=== PATIENT | male | born 1985 | race Caucasian/White ===

== ENCOUNTER 2021-01-14 13:55 | Inpatient (IN) | payer OTHER ==
[2021-01-14] MEDS ORDERED: Sodium Chloride 0.9% 10 ML Syringe FLUSH PRN (14:34)
--- NOTE | 2021-01-14 16:36 | EDM.PDOC ---
ED HPI GENERAL MEDICAL PROBLEM - General Chief Complaint: Respiratory Problem Stated Complaint: COVID +/COUGH Time Seen by Provider: 01/14/21 14:20 Source of Information: Reports: Patient History Limitations: Reports: No Limitations - History of Present Illness INITIAL COMMENTS - FREE TEXT/NARRATIVE: 35-year-old male presents the emergency department today with complaints of in creased shortness of breath due to Covid. Patient states that he developed symptoms of Covid approximately 2 weeks ago. States he tested positive for Covid on 01/09/2021. Patient states he has completed his 10 days of isolation. Complains of progressively worsening dyspnea at rest. States that he has had chest discomfort associated with persistent paroxysmal coughing. States he has been taking Mucinex, DayQuil and NyQuil. He does admit to vaping. States he is otherwise healthy and does not have any medical problems. O2 saturations while in triage were 87% on room air. O2 was applied at 4 L per nasal cannula and O2 saturations only increased to 91% on room air. States that most of his symptoms have resolved. He initially did have nausea, fever, chills, body aches and diarrhea. States that he continues to have diarrhea and decreased appetite. Chest Pain Score (Numeric/FACES): 5 - Related Data Allergies Allergy/AdvReac Type Severity Reaction Status Date / Time No Known Allergies Allergy Verified 01/14/21 14:09 Home Meds: Home Meds . [No Known Home Meds] 01/14/21 [History] Past Medical History - Past Health History Medical/Surgical History: Denies Medical/Surgical History - Infectious Disease History Infectious Disease History: Reports: Novel Coronavirus Social & Family History - Tobacco Use Tobacco Use Status *Q: Never Tobacco User - Recreational Drug Use Recreational Drug Use: No ED ROS GENERAL - Review of Systems Review Of Systems: Comprehensive ROS is negative, except as noted in HPI. ED EXAM, GENERAL - Physical Exam Exam: See Below Exam Limited By: No Limitations General Appearance: Alert, WD/WN, Mild Distress Ears: Normal External Exam, Hearing Grossly Normal Nose: Normal Inspection Throat/Mouth: Normal Inspection, Normal Lips, Normal Voice, No Airway Compromise Head: Atraumatic Neck: Normal Inspection, Supple Respiratory/Chest: No Accessory Muscle Use, Chest Non-Tender, Respiratory Distress, Decreased Breath Sounds, Crackles (Bilaterally) Cardiovascular: Normal Peripheral Pulses, Regular Rate, Rhythm, No Edema, No Murmur Peripheral Pulses: 2+: Radial (L), Radial (R) GI/Abdominal: Normal Bowel Sounds, Soft, Non-Tender, No Distention (Male) Exam: Deferred Rectal (Males) Exam: Deferred Back Exam: Normal Inspection Extremities: Normal Inspection Neurological: Alert, Oriented, Normal Cognition Psychiatric: Normal Affect, Normal Mood Skin Exam: Warm, Dry, Intact, Normal Color, No Rash Lymphatic: No Adenopathy Course - Vital Signs Text/Narrative:: As stated above, patient presents with worsening shortness of breath associated with Covid. Patient is currently on 4 L of oxygen per nasal cannula with O2 saturations at 91%. He does have a paroxysmal cough noted. Lung sounds with crackles noted to all layton. I have ordered lab studies to include a CBC, CMP, magnesium, C-reactive protein and D-dimer. We will also obtain a portable chest x-ray. Last Recorded V/S: Last Vital Signs Temp 97.0 F 01/14/21 14:04 Pulse 88 01/14/21 14:04 Resp 23 H 01/14/21 14:04 BP 118/76 01/14/21 14:04 Pulse Ox 87 L 01/14/21 14:04 - Orders/Labs/Meds Orders: Active Orders 24 hr Category Date Time Status Chest 1V Frontal [CR] Stat Exams 01/14/21 14:34 Taken CORONAVIRUS COVID-19 EMI [MOLEC] Stat Lab 01/14/21 16:25 Received Sodium Chloride 0.9% [Saline Flush] Med 01/14/21 14:34 Active 10 ml FLUSH ASDIRECTED PRN cefTRIAXone [Rocephin] 2 gm Med 01/14/21 16:30 Active Sodium Chloride 0.9% [Normal Saline AdvBag] 100 ml IV Q24H Saline Lock Insert [OM.PC] Stat Oth 01/14/21 14:34 Ordered Medication Orders Ceftriaxone Sodium 2 gm/ (Sodium Chloride) 100 mls @ 200 mls/hr IV Q24H MADYSON Sodium Chloride (Sodium Chloride 0.9% 10 Ml Syringe) 10 ml FLUSH ASDIRECTED PRN PRN Reason: Keep Vein Open Last Admin: 01/14/21 15:14 Dose: 10 ml Documented by: JULIO Labs: Laboratory Tests 01/14/21 01/14/21 01/14/21 Range/Units 15:00 15:00 15:00 WBC 6.08 (4.23-9.07) K/mm3 RBC 4.93 (4.63-6.08) M/mm3 Hgb 14.2 (13.7-17.5) gm/dl Hct 43.0 (40.1-51.0) % MCV 87.2 (79.0-92.2) fl MCH 28.8 (25.7-32.2) pg MCHC 33.0 (32.2-35.5) g/dl RDW Std Deviation 43.2 (35.1-43.9) fL Plt Count 279 (163-337) K/mm3 MPV 10.9 (9.4-12.3) fl Neut % (Auto) 53.9 (34.0-67.9) % Lymph % (Auto) 29.8 (21.8-53.1) % [place] % (Auto) 15.0 H (5.3-12.2) % Eos % (Auto) 0.5 L (0.8-7.0) Baso % (Auto) 0.5 (0.1-1.2) % Neut # (Auto) 3.28 (1.78-5.38) K/mm3 Lymph # (Auto) 1.81 (1.32-3.57) K/mm3 [place] # (Auto) 0.91 H (0.30-0.82) K/mm3 Eos # (Auto) 0.03 L (0.04-0.54) K/mm3 Baso # (Auto) 0.03 (0.01-0.08) K/mm3 Manual Slide Review Normal smear D-Dimer, Quantitative 1.08 H (0.19-0.50) mg/L Sodium 142 (136-145) mEq/L Potassium 4.6 (3.5-5.1) mEq/L Chloride 107 (98-107) mEq/L Carbon Dioxide 25 (21-32) mEq/L Anion Gap 14.6 (5-15) BUN 12 (7-18) mg/dL Creatinine 0.8 (0.7-1.3) mg/dL Est Cr Clr Drug Dosing 133.07 mL/min Estimated GFR (MDRD) > 60 (>60) mL/min BUN/Creatinine Ratio 15.0 (14-18) Glucose 94 (70-99) mg/dL Calcium 7.9 L (8.5-10.1) mg/dL Magnesium 2.1 (1.8-2.4) mg/dL Total Bilirubin 0.6 (0.2-1.0) mg/dL AST 152 H (15-37) U/L ALT 193 H (16-63) U/L Alkaline Phosphatase 75 (46-116) U/L C-Reactive Protein 11.0 H* (<1.0) mg/dL Total Protein 6.7 (6.4-8.2) g/dl Albumin 3.2 L (3.4-5.0) g/dl Globulin 3.5 gm/dL Albumin/Globulin Ratio 0.9 L (1-2) Meds: Medications Generic Name Dose Route Start Last Admin Trade Name Freq PRN Reason Stop Dose Admin Ceftriaxone Sodium 2 gm/ 100 mls @ 200 mls/hr 01/14/21 16:30 Sodium Chloride IV Q24H MADYSON Sodium Chloride 10 ml 01/14/21 14:34 01/14/21 15:14 Sodium Chloride 0.9% 10 Ml Syringe FLUSH 10 ml ASDIRECTED PRN Administration Keep Vein Open - Re-Assessments/Exams Free Text/Narrative Re-Assessment/Exam: 01/14/21 16:37 Portable x-ray of the chest was reviewed by myself and it reveals multiple areas of infiltrate consistent with Covid pneumonia. 01/14/21 16:42 Hematology reveals a WBC of 6.08, hemoglobin 14.2, hematocrit 43.0, platelet count 279, coagulation reveals a D-dimer of 1.08 Chemistry reveals a sodium of 142, potassium 4.6, carbon dioxide 25, anion gap 14.6, BUN 12, creatinine 0.8, GFR greater than 60, calcium 7.9, magnesium 2.1, AST 152, ALT 193, C-reactive protein 11.0 I do feel this patient needs to be admitted to the hospital due to his increasing dyspnea and oxygen requirements. I have spoken with Dr. Weeks, the hospitalist, who has accepted to admit the patient and his services. He requests that I order the patient receive Rocephin 2 g IV as well as be retested for Covid. Departure - Departure Time of Disposition: 16:43 Disposition: Admitted As Inpatient 66 Condition: Good Clinical Impression: Pneumonia due to 2019 novel coronavirus - Discharge Information Referrals: PCP,None [Primary Care Provider] - Sepsis Event Note (ED) - Evaluation Sepsis Screening Result: No Definite Risk - Focused Exam Vital Signs: Vital Signs Temp Pulse Resp BP Pulse Ox 01/14/21 14:04 97.0 F 88 23 H 118/76 87 L - My Orders Last 24 Hours: My Active Orders 01/14/21 14:34 Chest 1V Frontal [CR] Stat Sodium Chloride 0.9% [Saline Flush] 10 ml FLUSH ASDIRECTED PRN Saline Lock Insert [OM.PC] Stat 01/14/21 16:25 CORONAVIRUS COVID-19 EMI [MOLEC] Stat 01/14/21 16:30 cefTRIAXone [Rocephin] 2 gm Sodium Chloride 0.9% [Normal Saline AdvBag] 100 ml IV Q24H - Assessment/Plan Last 24 Hours: My Active Orders 01/14/21 14:34 Chest 1V Frontal [CR] Stat Sodium Chloride 0.9% [Saline Flush] 10 ml FLUSH ASDIRECTED PRN Saline Lock Insert [OM.PC] Stat 01/14/21 16:25 CORONAVIRUS COVID-19 EMI [MOLEC] Stat 01/14/21 16:30 cefTRIAXone [Rocephin] 2 gm Sodium Chloride 0.9% [Normal Saline AdvBag] 100 ml IV Q24H
[2021-01-14] MEDS ORDERED: Morphine 2 MG/ML SYRINGE IVPUSH PRN (17:18)
[2021-01-14] MEDS ORDERED: oxyCODONE 5 MG Tab PO PRN (17:18)
[2021-01-14] MEDS ORDERED: Temazepam 15 MG Cap PO PRN (17:18)
[2021-01-14] MEDS ORDERED: Ondansetron 4 MG Tab.DIS PO PRN (17:18)
[2021-01-14] MEDS ORDERED: Acetaminophen 325 MG Tab PO PRN (17:18)
[2021-01-14] MEDS ORDERED: Docusate Sodium 100 MG Cap PO PRN (17:18)
--- NOTE | 2021-01-14 17:22 | PCM.HP.2 ---
H&P History of Present Illness - General Date of Service: 01/15/21 Admit Problem/Dx: Admission Diagnosis/Problem Admission Diagnosis/Problem Pneumonia Source of Information: Patient History Limitations: Reports: No Limitations - History of Present Illness Initial Comments - Free Text/Narative: The patient is a 35-year-old gentleman who had presented to the emergency department on January 14, 2021 with a complaint of shortness of breath. The patient had been diagnosed with COVID 19 on January 09, 2021 by testing. The patient says that his symptoms started approximately 2 weeks ago. He has been trying to treat at home without success. The patient also says that he has paroxysmal coughing and not able to take a deep breath. The patient had completed 10 days of isolation at home. The patient says that he had a headache initially but this has resolved. He is denied any nausea or vomiting. The patient also reports that he had some fever. Decreased appetite. The patient has no other medical history and is not taking any medications. The patient has been vaping tobacco. Onset of Symptoms: Reports: Gradual Duration of Symptoms: Reports: Week(s):, Getting Worse Location: Reports: Chest, Generalized Quality: Reports: Dull Improves with: Reports: Rest Worsens with: Reports: Breathing Context: Reports: Sick Contact Associated Symptoms: Reports: Cough, Headaches Chest Pain Score (Numeric/FACES): 5 - Related Data Allergies/Adverse Reactions: Allergies Allergy/AdvReac Type Severity Reaction Status Date / Time No Known Allergies Allergy Verified 01/14/21 21:08 Home Medications: Home Meds . [No Known Home Meds] 01/14/21 [History] Past Medical History - Past Health History Medical/Surgical History: Denies Medical/Surgical History HEENT History: Reports: None Cardiovascular History: Reports: None Respiratory History: Reports: None Gastrointestinal History: Reports: None Genitourinary History: Reports: None Musculoskeletal History: Reports: None Neurological History: Reports: None Psychiatric History: Reports: None Endocrine/Metabolic History: Reports: None Hematologic History: Reports: None Immunologic History: Reports: None Dermatologic History: Reports: None - Infectious Disease History Infectious Disease History: Reports: Novel Coronavirus Social & Family History - Tobacco Use Tobacco Use Within Last Twelve Months: Vaping - Recreational Drug Use Recreational Drug Use: No - Living Situation & Occupation Living situation: Reports: , with Family Occupation: Employed H&P Review of Systems - Review of Systems: Review Of Systems: See Below General: Reports: Weakness, Fatigue, Decreased Appetite HEENT: Reports: No Symptoms Pulmonary: Reports: Shortness of Breath, Wheezing, Pleuritic Chest Pain, Cough. Denies: Sputum Cardiovascular: Reports: No Symptoms Gastrointestinal: Reports: No Symptoms Genitourinary: Reports: No Symptoms Musculoskeletal: Reports: No Symptoms Skin: Reports: No Symptoms Psychiatric: Reports: No Symptoms Neurological: Reports: No Symptoms Hematologic/Lymphatic: Reports: No Symptoms Immunologic: Reports: No Symptoms Exam - Exam Exam: See Below - Vital Signs Vital Signs: Last Vital Signs Temp 36.1 C 01/14/21 14:04 Pulse 88 01/14/21 14:04 Resp 23 H 01/14/21 14:04 BP 118/76 01/14/21 14:04 Pulse Ox 87 L 01/14/21 14:04 Weight: 112.627 kg - Exam Quality Assessment: Supplemental Oxygen. No: DVT Prophylaxis General: Alert, Oriented, Cooperative, Mild Distress HEENT: Conjunctiva Clear, EACs Clear, EOMI, Hearing Intact, Mucosa Moist & [place], PERRLA Neck: Supple, Trachea Midline Lungs: Decreased Breath Sounds, Crackles (Scattered throughout the lung layton) Cardiovascular: Regular Rate, Regular Rhythm GI/Abdominal Exam: Normal Bowel Sounds, Soft, No Distention (Male) Exam: Deferred Rectal (Males) Exam: Deferred Back Exam: Normal Inspection, Full Range of Motion Extremities: Normal Inspection, Normal Range of Motion, No Pedal Edema Skin: Warm, Dry, Intact Neurological: Cranial Nerves Intact, Strength Equal Bilateral, Normal Gait, Normal Speech Neuro Extensive - Mental Status: Alert, Oriented x3 Psychiatric: Alert, Normal Affect, Normal Mood - Patient Data Lab Results Last 24 hrs: Laboratory Results - last 24 hr 01/14/21 01/14/21 01/14/21 Range/Units 15:00 15:00 15:00 WBC 6.08 (4.23-9.07) K/mm3 RBC 4.93 (4.63-6.08) M/mm3 Hgb 14.2 (13.7-17.5) gm/dl Hct 43.0 (40.1-51.0) % MCV 87.2 (79.0-92.2) fl MCH 28.8 (25.7-32.2) pg MCHC 33.0 (32.2-35.5) g/dl RDW Std Deviation 43.2 (35.1-43.9) fL Plt Count 279 (163-337) K/mm3 MPV 10.9 (9.4-12.3) fl Neut % (Auto) 53.9 (34.0-67.9) % Lymph % (Auto) 29.8 (21.8-53.1) % [place] % (Auto) 15.0 H (5.3-12.2) % Eos % (Auto) 0.5 L (0.8-7.0) Baso % (Auto) 0.5 (0.1-1.2) % Neut # (Auto) 3.28 (1.78-5.38) K/mm3 Lymph # (Auto) 1.81 (1.32-3.57) K/mm3 [place] # (Auto) 0.91 H (0.30-0.82) K/mm3 Eos # (Auto) 0.03 L (0.04-0.54) K/mm3 Baso # (Auto) 0.03 (0.01-0.08) K/mm3 Manual Slide Review Normal smear D-Dimer, Quantitative 1.08 H (0.19-0.50) mg/L Sodium 142 (136-145) mEq/L Potassium 4.6 (3.5-5.1) mEq/L Chloride 107 (98-107) mEq/L Carbon Dioxide 25 (21-32) mEq/L Anion Gap 14.6 (5-15) BUN 12 (7-18) mg/dL Creatinine 0.8 (0.7-1.3) mg/dL Est Cr Clr Drug Dosing 133.07 mL/min Estimated GFR (MDRD) > 60 (>60) mL/min BUN/Creatinine Ratio 15.0 (14-18) Glucose 94 (70-99) mg/dL Calcium 7.9 L (8.5-10.1) mg/dL Magnesium 2.1 (1.8-2.4) mg/dL Total Bilirubin 0.6 (0.2-1.0) mg/dL AST 152 H (15-37) U/L ALT 193 H (16-63) U/L Alkaline Phosphatase 75 (46-116) U/L C-Reactive Protein 11.0 H* (<1.0) mg/dL Total Protein 6.7 (6.4-8.2) g/dl Albumin 3.2 L (3.4-5.0) g/dl Globulin 3.5 gm/dL Albumin/Globulin Ratio 0.9 L (1-2) Result Diagrams: 01/14/21 15:00 01/14/21 15:00 Sepsis Event Note - Evaluation Sepsis Screening Result: No Definite Risk - Focused Exam Vital Signs: Vital Signs Temp Pulse Resp BP Pulse Ox 01/14/21 14:04 36.1 C 88 23 H 118/76 87 L - Problem List (1) Acute respiratory failure SNOMED Code(s): 83670832 ICD Code: J96.00 - ACUTE RESPIRATORY FAILURE, UNSP W HYPOXIA OR HYPERCAPNIA Status: Acute Priority: High Current Visit: Yes Qualifiers: Respiratory failure complication: hypoxia Qualified Code(s): J96.01 - Acute respiratory failure with hypoxia (2) Pneumonia due to 2019 novel coronavirus SNOMED Code(s): 455276146017830951 ICD Code: U07.1 - COVID-19; J12.82 - PNEUMONIA DUE TO CORONAVIRUS DISEASE 2019 Status: Acute Priority: High Current Visit: Yes (3) Tobacco use SNOMED Code(s): 193430128 ICD Code: Z72.0 - TOBACCO USE Status: Chronic Priority: High Current Visit: Yes (4) Transaminitis SNOMED Code(s): 176637912, 256554454 ICD Code: R74.01 - ELEVATION OF LEVELS OF LIVER TRANSAMINASE LEVELS Status: Chronic Priority: High Current Visit: Yes Problem List Initiated/Reviewed/Updated: Yes Orders Last 24hrs: Active Orders 24 hr Category Date Time Status Patient Status [ADT] Routine ADT 01/14/21 17:18 Ordered Cardiac Monitoring [RC] CONTINUOUS Care 01/14/21 17:18 Ordered Oxygen Therapy [RC] PRN Care 01/14/21 17:18 Ordered RT Aerosol Therapy [RC] ASDIRECTED Care 01/14/21 17:18 Ordered Up ad Dona [RC] ASDIRECTED Care 01/14/21 17:18 Ordered VTE/DVT Education [RC] PER UNIT ROUTINE Care 01/14/21 17:18 Ordered Vital Signs [RC] Q4H Care 01/14/21 17:18 Ordered Regular Diet [DIET] Diet 01/14/21 Dinner Ordered Chest 1V Frontal [CR] Stat Exams 01/14/21 14:34 Taken C-REACTIVE PROTEIN [CHEM] AM Lab 01/15/21 05:11 Ordered CBC WITH AUTO DIFF [HEME] AM Lab 01/15/21 05:11 Ordered COMPREHENSIVE METABOLIC PN,CMP [CHEM] AM Lab 01/15/21 05:11 Ordered CORONAVIRUS COVID-19 EMI [MOLEC] Stat Lab 01/14/21 16:25 Received D-DIMER QUANTITATIVE [COAG] AM Lab 01/15/21 05:11 Ordered MAGNESIUM [CHEM] AM Lab 01/15/21 05:11 Ordered Acetaminophen [TylenoL] Med 01/14/21 17:18 Ordered 650 mg PO Q4H PRN Albuterol/Ipratropium [DuoNeb 3.0-0.5 MG/3 ML] Med 01/14/21 17:18 Ordered 3 ml NEB Q4H PRN Docusate Sodium [Colace] Med 01/14/21 17:18 Ordered 100 mg PO BID PRN Enoxaparin [Lovenox] Med 01/15/21 09:00 Ordered 40 mg SUBCUT DAILY Morphine Med 01/14/21 17:18 Ordered 2 mg IVPUSH Q2H PRN Nicotine [Habitrol] Med 01/15/21 09:00 Ordered 14 mg TRDERM DAILY Ondansetron [Zofran ODT] Med 01/14/21 17:18 Ordered 4 mg PO Q4H PRN Sodium Chloride 0.9% [Saline Flush] Med 01/14/21 14:34 Active 10 ml FLUSH ASDIRECTED PRN Temazepam [Restoril] Med 01/14/21 17:18 Ordered 15 mg PO BEDTIME PRN cefTRIAXone [Rocephin] 2 gm Med 01/14/21 16:30 Active Sodium Chloride 0.9% [Normal Saline AdvBag] 100 ml IV Q24H cefTRIAXone [Rocephin] 2 gm Med 01/15/21 12:00 Ordered Sodium Chloride 0.9% [Normal Saline AdvBag] 100 ml IV Q24H oxyCODONE Med 01/14/21 17:18 Ordered 5 mg PO Q4H PRN predniSONE Med 01/15/21 07:00 Ordered 40 mg PO WITHBREAKFAST Saline Lock Insert [OM.PC] Stat Oth 01/14/21 14:34 Ordered Resuscitation Status Routine Resus Stat 01/14/21 17:18 Ordered Medication Orders Ceftriaxone Sodium 2 gm/ (Sodium Chloride) 100 mls @ 200 mls/hr IV Q24H MADYSON Sodium Chloride (Sodium Chloride 0.9% 10 Ml Syringe) 10 ml FLUSH ASDIRECTED PRN PRN Reason: Keep Vein Open Last Admin: 01/14/21 15:14 Dose: 10 ml Documented by: JULIO Assessment/Plan Comment:: The patient is a 35-year-old gentleman who has been admitted to hospitalization for treatment of his Covid pneumonia. The patient is outside the window for recommended treatment for remdesivir. I have placed the patient on ceftriaxone 2 g IV daily to cover any superimposed bacterial infection. The patient has also been started on prednisone 40 mg p.o. daily. The patient will have a regular diet as tolerated. The patient will have oxygen titrated to keep his saturations around 92%. The patient is also anticoagulated for DVT prophylaxis with the use of Lovenox 40 mg subcu daily. The patient has been encouraged to ambulate. He is also to use incentive spirometer. The patient also has elevations of his ALT/AST and have ordered repeat laboratory studies in the morning to monitor those for now. I have also afforded the patient a nicotine patch 14 mg daily if needed. To help with the patient's cough he has Phenergan with codeine. The patient should be appropriate for discharge when his oxygen saturations have improved and his symptoms have improved as well. - Mortality Measure Prognosis:: Good
[2021-01-14] MEDS: cefTRIAXone 2 GM in Sodium Chloride 0.9% 100 ML IV SCH (19:03)
[2021-01-14] MEDS: Codeine/Promethazine 10-6.25 MG/5 ML Syrup 5 ML UD Cup PO PRN (20:35)
[2021-01-14] MEDS: Albuterol/Ipratropium 3.0-0.5 MG/3 ML Neb Soln NEB PRN (21:52)
[2021-01-15] MEDS: Codeine/Promethazine 10-6.25 MG/5 ML Syrup 5 ML UD Cup PO PRN (01:32)
[2021-01-15] MEDS: Albuterol/Ipratropium 3.0-0.5 MG/3 ML Neb Soln NEB PRN ×3 (06:05→17:08)
--- NOTE | 2021-01-15 07:57 | CR ---
Chest: Portable view of the chest was obtained. Comparison: No prior chest imaging is available. Heart size and mediastinum are normal. Patchy areas of increased density are seen on both sides of the chest. Bony structures show nothing acute. Impression: 1. Moderately severe bilateral COVID pneumonia. Diagnostic code #3
--- NOTE | 2021-01-15 07:57 | PCM.PN ---
- General Info Date of Service: 01/15/21 Admission Dx/Problem (Free Text): Acute respiratory failure due to pneumonia associated with COVID-19. Subjective Update: Patient is a 35-year-old gentleman who was admitted to acute hospitalization yesterday due to COVID-19 pneumonia. The patient today says that he is feeling better. He is still somewhat short of breath. The patient has denied any new pain. He has been tolerating his diet. His cough has been controlled with the use of medication. Functional Status: Reports: Pain Controlled, Tolerating Diet. Denies: New Symptoms - Review of Systems General: Reports: Fatigue HEENT: Reports: No Symptoms Pulmonary: Reports: Shortness of Breath, Cough. Denies: Sputum Cardiovascular: Reports: Dyspnea on Exertion Gastrointestinal: Reports: No Symptoms Genitourinary: Reports: No Symptoms Musculoskeletal: Reports: No Symptoms Skin: Reports: No Symptoms Neurological: Reports: No Symptoms Psychiatric: Reports: No Symptoms - Patient Data Vitals - Most Recent: Last Vital Signs Temp 37.1 C 01/15/21 04:13 Pulse 132 H 01/15/21 06:51 Resp 16 01/15/21 04:13 BP 119/65 01/15/21 04:13 Pulse Ox 75 L 01/15/21 06:51 Weight - Most Recent: 111.811 kg I&O - Last 24 Hours: Intake & Output 01/14/21 01/15/21 01/15/21 22:59 06:59 14:59 Intake Total 700 300 Balance 700 300 Lab Results Last 24 Hours: Laboratory Results - last 24 hr 01/14/21 01/14/21 01/14/21 Range/Units 15:00 15:00 15:00 WBC 6.08 (4.23-9.07) K/mm3 RBC 4.93 (4.63-6.08) M/mm3 Hgb 14.2 (13.7-17.5) gm/dl Hct 43.0 (40.1-51.0) % MCV 87.2 (79.0-92.2) fl MCH 28.8 (25.7-32.2) pg MCHC 33.0 (32.2-35.5) g/dl RDW Std Deviation 43.2 (35.1-43.9) fL Plt Count 279 (163-337) K/mm3 MPV 10.9 (9.4-12.3) fl Neut % (Auto) 53.9 (34.0-67.9) % Lymph % (Auto) 29.8 (21.8-53.1) % Chase % (Auto) 15.0 H (5.3-12.2) % Eos % (Auto) 0.5 L (0.8-7.0) Baso % (Auto) 0.5 (0.1-1.2) % Neut # (Auto) 3.28 (1.78-5.38) K/mm3 Lymph # (Auto) 1.81 (1.32-3.57) K/mm3 Chase # (Auto) 0.91 H (0.30-0.82) K/mm3 Eos # (Auto) 0.03 L (0.04-0.54) K/mm3 Baso # (Auto) 0.03 (0.01-0.08) K/mm3 Manual Slide Review Normal smear D-Dimer, Quantitative 1.08 H (0.19-0.50) mg/L Sodium 142 (136-145) mEq/L Potassium 4.6 (3.5-5.1) mEq/L Chloride 107 (98-107) mEq/L Carbon Dioxide 25 (21-32) mEq/L Anion Gap 14.6 (5-15) BUN 12 (7-18) mg/dL Creatinine 0.8 (0.7-1.3) mg/dL Est Cr Clr Drug Dosing 133.07 mL/min Estimated GFR (MDRD) > 60 (>60) mL/min BUN/Creatinine Ratio 15.0 (14-18) Glucose 94 (70-99) mg/dL Calcium 7.9 L (8.5-10.1) mg/dL Magnesium 2.1 (1.8-2.4) mg/dL Total Bilirubin 0.6 (0.2-1.0) mg/dL AST 152 H (15-37) U/L ALT 193 H (16-63) U/L Alkaline Phosphatase 75 (46-116) U/L C-Reactive Protein 11.0 H* (<1.0) mg/dL Total Protein 6.7 (6.4-8.2) g/dl Albumin 3.2 L (3.4-5.0) g/dl Globulin 3.5 gm/dL Albumin/Globulin Ratio 0.9 L (1-2) SARS-CoV-2 RNA (EMI) (NEGATIVE) 01/14/21 Range/Units 16:25 WBC (4.23-9.07) K/mm3 RBC (4.63-6.08) M/mm3 Hgb (13.7-17.5) gm/dl Hct (40.1-51.0) % MCV (79.0-92.2) fl MCH (25.7-32.2) pg MCHC (32.2-35.5) g/dl RDW Std Deviation (35.1-43.9) fL Plt Count (163-337) K/mm3 MPV (9.4-12.3) fl Neut % (Auto) (34.0-67.9) % Lymph % (Auto) (21.8-53.1) % Chase % (Auto) (5.3-12.2) % Eos % (Auto) (0.8-7.0) Baso % (Auto) (0.1-1.2) % Neut # (Auto) (1.78-5.38) K/mm3 Lymph # (Auto) (1.32-3.57) K/mm3 Chase # (Auto) (0.30-0.82) K/mm3 Eos # (Auto) (0.04-0.54) K/mm3 Baso # (Auto) (0.01-0.08) K/mm3 Manual Slide Review D-Dimer, Quantitative (0.19-0.50) mg/L Sodium (136-145) mEq/L Potassium (3.5-5.1) mEq/L Chloride (98-107) mEq/L Carbon Dioxide (21-32) mEq/L Anion Gap (5-15) BUN (7-18) mg/dL Creatinine (0.7-1.3) mg/dL Est Cr Clr Drug Dosing mL/min Estimated GFR (MDRD) (>60) mL/min BUN/Creatinine Ratio (14-18) Glucose (70-99) mg/dL Calcium (8.5-10.1) mg/dL Magnesium (1.8-2.4) mg/dL Total Bilirubin (0.2-1.0) mg/dL AST (15-37) U/L ALT (16-63) U/L Alkaline Phosphatase (46-116) U/L C-Reactive Protein (<1.0) mg/dL Total Protein (6.4-8.2) g/dl Albumin (3.4-5.0) g/dl Globulin gm/dL Albumin/Globulin Ratio (1-2) SARS-CoV-2 RNA (EMI) Positive H (NEGATIVE) Med Orders - Current: Current Medications Acetaminophen (Acetaminophen 325 Mg Tab) 650 mg PO Q4H PRN PRN Reason: Pain (Mild 1-3)/fever Albuterol/Ipratropium (Albuterol/Ipratropium 3.0-0.5 Mg/3 Ml Neb Soln) 3 ml NEB Q4H PRN PRN Reason: Shortness Of Breath/wheezing Last Admin: 01/15/21 06:05 Dose: 3 ml Documented by: Docusate Sodium (Docusate Sodium 100 Mg Cap) 100 mg PO BID PRN PRN Reason: Constipation Enoxaparin Sodium (Enoxaparin 40 Mg/0.4 Ml Syringe) 40 mg SUBCUT DAILY [facility] Ceftriaxone Sodium 2 gm/ (Sodium Chloride) 100 mls @ 200 mls/hr IV Q24H [facility] Last Admin: 01/14/21 19:03 Dose: 200 mls/hr Documented by: Morphine Sulfate (Morphine 2 Mg/Ml Syringe) 2 mg IVPUSH Q2H PRN PRN Reason: Pain (severe 7-10) Stop: 01/15/21 17:18 Nicotine (Nicotine 14 Mg/24 Hr Patch) 14 mg TRDERM DAILY [facility] Ondansetron HCl (Ondansetron 4 Mg Tab.Dis) 4 mg PO Q4H PRN PRN Reason: nausea, able to take PO Oxycodone HCl (Oxycodone 5 Mg Tab) 5 mg PO Q4H PRN PRN Reason: Pain (moderate 4-6) Prednisone (Prednisone 20 Mg Tab) 40 mg PO WITHBREAKFAST [facility] Promethazine HCl/Codeine (Codeine/Promethazine 10-6.25 Mg/5 Ml Syrup 5 Ml Ud Cup) 5 ml PO Q4HR PRN PRN Reason: Cough Last Admin: 01/15/21 01:32 Dose: 5 ml Documented by: Sodium Chloride (Sodium Chloride 0.9% 10 Ml Syringe) 10 ml FLUSH ASDIRECTED PRN PRN Reason: Keep Vein Open Last Admin: 01/14/21 15:14 Dose: 10 ml Documented by: Temazepam (Temazepam 15 Mg Cap) 15 mg PO BEDTIME PRN PRN Reason: Sleep - Exam Quality Assessment: Supplemental Oxygen, DVT Prophylaxis General: Alert, Oriented, Cooperative, No Acute Distress HEENT: Pupils Equal, Pupils Reactive, EOMI, Mucous Membr. Moist/[place] Neck: Supple, Trachea Midline Lungs: Decreased Breath Sounds, Crackles, Rales (Bibasilar) Cardiovascular: Regular Rate, Regular Rhythm GI/Abdominal Exam: Normal Bowel Sounds, Soft, Non-Tender, No Distention (Male) Exam: Deferred Back Exam: Normal Inspection, Full Range of Motion Extremities: Normal Inspection, Normal Range of Motion, No Pedal Edema Skin: Warm, Dry, Intact Neurological: No New Focal Deficit, Normal Gait, Normal Speech Psy/Mental Status: Alert, Normal Affect, Normal Mood - Patient Data Lab Results Last 24 hrs: Laboratory Results - last 24 hr 01/14/21 01/14/21 01/14/21 Range/Units 15:00 15:00 15:00 WBC 6.08 (4.23-9.07) K/mm3 RBC 4.93 (4.63-6.08) M/mm3 Hgb 14.2 (13.7-17.5) gm/dl Hct 43.0 (40.1-51.0) % MCV 87.2 (79.0-92.2) fl MCH 28.8 (25.7-32.2) pg MCHC 33.0 (32.2-35.5) g/dl RDW Std Deviation 43.2 (35.1-43.9) fL Plt Count 279 (163-337) K/mm3 MPV 10.9 (9.4-12.3) fl Neut % (Auto) 53.9 (34.0-67.9) % Lymph % (Auto) 29.8 (21.8-53.1) % Chase % (Auto) 15.0 H (5.3-12.2) % Eos % (Auto) 0.5 L (0.8-7.0) Baso % (Auto) 0.5 (0.1-1.2) % Neut # (Auto) 3.28 (1.78-5.38) K/mm3 Lymph # (Auto) 1.81 (1.32-3.57) K/mm3 Chase # (Auto) 0.91 H (0.30-0.82) K/mm3 Eos # (Auto) 0.03 L (0.04-0.54) K/mm3 Baso # (Auto) 0.03 (0.01-0.08) K/mm3 Manual Slide Review Normal smear D-Dimer, Quantitative 1.08 H (0.19-0.50) mg/L Sodium 142 (136-145) mEq/L Potassium 4.6 (3.5-5.1) mEq/L Chloride 107 (98-107) mEq/L Carbon Dioxide 25 (21-32) mEq/L Anion Gap 14.6 (5-15) BUN 12 (7-18) mg/dL Creatinine 0.8 (0.7-1.3) mg/dL Est Cr Clr Drug Dosing 133.07 mL/min Estimated GFR (MDRD) > 60 (>60) mL/min BUN/Creatinine Ratio 15.0 (14-18) Glucose 94 (70-99) mg/dL Calcium 7.9 L (8.5-10.1) mg/dL Magnesium 2.1 (1.8-2.4) mg/dL Total Bilirubin 0.6 (0.2-1.0) mg/dL AST 152 H (15-37) U/L ALT 193 H (16-63) U/L Alkaline Phosphatase 75 (46-116) U/L C-Reactive Protein 11.0 H* (<1.0) mg/dL Total Protein 6.7 (6.4-8.2) g/dl Albumin 3.2 L (3.4-5.0) g/dl Globulin 3.5 gm/dL Albumin/Globulin Ratio 0.9 L (1-2) SARS-CoV-2 RNA (EMI) (NEGATIVE) 01/14/21 Range/Units 16:25 WBC (4.23-9.07) K/mm3 RBC (4.63-6.08) M/mm3 Hgb (13.7-17.5) gm/dl Hct (40.1-51.0) % MCV (79.0-92.2) fl MCH (25.7-32.2) pg MCHC (32.2-35.5) g/dl RDW Std Deviation (35.1-43.9) fL Plt Count (163-337) K/mm3 MPV (9.4-12.3) fl Neut % (Auto) (34.0-67.9) % Lymph % (Auto) (21.8-53.1) % Chase % (Auto) (5.3-12.2) % Eos % (Auto) (0.8-7.0) Baso % (Auto) (0.1-1.2) % Neut # (Auto) (1.78-5.38) K/mm3 Lymph # (Auto) (1.32-3.57) K/mm3 Chase # (Auto) (0.30-0.82) K/mm3 Eos # (Auto) (0.04-0.54) K/mm3 Baso # (Auto) (0.01-0.08) K/mm3 Manual Slide Review D-Dimer, Quantitative (0.19-0.50) mg/L Sodium (136-145) mEq/L Potassium (3.5-5.1) mEq/L Chloride (98-107) mEq/L Carbon Dioxide (21-32) mEq/L Anion Gap (5-15) BUN (7-18) mg/dL Creatinine (0.7-1.3) mg/dL Est Cr Clr Drug Dosing mL/min Estimated GFR (MDRD) (>60) mL/min BUN/Creatinine Ratio (14-18) Glucose (70-99) mg/dL Calcium (8.5-10.1) mg/dL Magnesium (1.8-2.4) mg/dL Total Bilirubin (0.2-1.0) mg/dL AST (15-37) U/L ALT (16-63) U/L Alkaline Phosphatase (46-116) U/L C-Reactive Protein (<1.0) mg/dL Total Protein (6.4-8.2) g/dl Albumin (3.4-5.0) g/dl Globulin gm/dL Albumin/Globulin Ratio (1-2) SARS-CoV-2 RNA (EMI) Positive H (NEGATIVE) Result Diagrams: 01/15/21 08:17 01/15/21 08:17 Sepsis Event Note - Evaluation Sepsis Screening Result: No Definite Risk - Focused Exam Vital Signs: Vital Signs Temp Pulse Pulse Resp BP Pulse Ox Pulse Ox 01/15/21 06:47 95 92 L 01/15/21 06:45 132 H 75 L 01/15/21 06:08 93 L 01/15/21 04:14 92 L 01/15/21 04:13 37.1 C 77 16 119/65 90 L 01/15/21 01:24 37.2 C 103 H 20 112/80 92 L 01/14/21 21:57 92 L 01/14/21 21:54 95 - Problem List & Annotations (1) Acute respiratory failure SNOMED Code(s): 40188500 Code(s): J96.00 - ACUTE RESPIRATORY FAILURE, UNSP W HYPOXIA OR HYPERCAPNIA Status: Acute Priority: High Current Visit: Yes Qualifiers: Respiratory failure complication: hypoxia Qualified Code(s): J96.01 - Acute respiratory failure with hypoxia (2) Pneumonia due to 2019 novel coronavirus SNOMED Code(s): 418113187648428045 Code(s): U07.1 - COVID-19; J12.82 - PNEUMONIA DUE TO CORONAVIRUS DISEASE 2019 Status: Acute Priority: High Current Visit: Yes (3) Tobacco use SNOMED Code(s): 545274475 Code(s): Z72.0 - TOBACCO USE Status: Chronic Priority: High Current Visit: Yes (4) Transaminitis SNOMED Code(s): 218528802, 182327892 Code(s): R74.01 - ELEVATION OF LEVELS OF LIVER TRANSAMINASE LEVELS Status: Chronic Priority: High Current Visit: Yes - Problem List Review Problem List Initiated/Reviewed/Updated: Yes - My Orders Last 24 Hours: My Active Orders 01/14/21 Dinner Regular Diet [DIET] 01/14/21 17:18 Patient Status [ADT] Routine Cardiac Monitoring [RC] CONTINUOUS Oxygen Therapy [RC] PRN RT Aerosol Therapy [RC] ASDIRECTED Up ad Dona [RC] ASDIRECTED VTE/DVT Education [RC] PER UNIT ROUTINE Vital Signs [RC] Q4HR Acetaminophen [TylenoL] 650 mg PO Q4H PRN Albuterol/Ipratropium [DuoNeb 3.0-0.5 MG/3 ML] 3 ml NEB Q4H PRN Docusate Sodium [Colace] 100 mg PO BID PRN Morphine 2 mg IVPUSH Q2H PRN Ondansetron [Zofran ODT] 4 mg PO Q4H PRN Temazepam [Restoril] 15 mg PO BEDTIME PRN oxyCODONE 5 mg PO Q4H PRN Resuscitation Status Routine 01/14/21 19:51 Codeine/Promethazine [Phenergan with Codeine] 5 ml PO Q4HR PRN 01/15/21 05:11 C-REACTIVE PROTEIN [CHEM] AM CBC WITH AUTO DIFF [HEME] AM COMPREHENSIVE METABOLIC PN,CMP [CHEM] AM D-DIMER QUANTITATIVE [COAG] AM MAGNESIUM [CHEM] AM 01/15/21 07:00 predniSONE 40 mg PO WITHBREAKFAST 01/15/21 09:00 Enoxaparin [Lovenox] 40 mg SUBCUT DAILY Nicotine [Habitrol] 14 mg TRDERM DAILY - Plan Plan:: The patient is a 35-year-old gentleman who has been admitted to hospitalization for treatment of his Covid pneumonia. The patient is outside the window for recommended treatment for remdesivir. I have placed the patient on ceftriaxone 2 g IV daily to cover any superimposed bacterial infection. The patient has also been started on prednisone 40 mg p.o. daily. The patient will have a regul ar diet as tolerated. The patient will have oxygen titrated to keep his saturations around 92%. The patient is also anticoagulated for DVT prophylaxis with the use of Lovenox 40 mg subcu daily. The patient has been encouraged to ambulate. He is also to use incentive spirometer. The patient also has elevations of his ALT/AST and have ordered repeat laboratory studies in the morning to monitor those for now. I have also afforded the patient a nicotine patch 14 mg daily if needed. To help with the patient's cough he has Phenergan with codeine. The patient should be appropriate for discharge when his oxygen saturations have improved and his symptoms have improved as well. 01/15/2021 The patient is a 35-year-old gentleman who had been admitted to [facility] for treatment of Covid associated pneumonia. The patient was outside the window of treatment for his remdesivir however, he has ceftriaxone 2 g IV daily for treatment of possible bacterial superimposed infection. The patient is also on prednisone 40 mg p.o. daily to continue. His oxygen will be titrated to keep his saturations around 92%. The patient has been encouraged to ambulate and use incentive spirometer. I have also educated the patient on the importance of the incentive spirometer and Acapella. The patient's ALT and AST have improved somewhat and repeat laboratory studies have been ordered. His cough is being suppressed with the use of Phenergan and codeine. The patient's DVT prophylaxis will continue with the use of Lovenox 40 mg subcutaneously daily. He is also to have a regular diet as tolerated. The patient should be appropriate for discharge once his oxygen demands have improved and his symptoms have improved as well.
[2021-01-15] MEDS: predniSONE 20 MG Tab PO SCH (09:01)
[2021-01-15] MEDS: Enoxaparin 40 MG/0.4 ML Syringe SUBCUT SCH (09:03)
[2021-01-15] MEDS: Nicotine 14 MG/24 Hr Patch TRDERM SCH (09:11)
[2021-01-15] MEDS ORDERED: cefTRIAXone 2 GM in Sodium Chloride 0.9% 100 ML IV SCH (12:00)
[2021-01-15] MEDS: cefTRIAXone 2 GM in Sodium Chloride 0.9% 100 ML IV SCH (15:45)
[2021-01-16] MEDS: Codeine/Promethazine 10-6.25 MG/5 ML Syrup 5 ML UD Cup PO PRN ×3 (03:39→20:13)
[2021-01-16] MEDS: Albuterol/Ipratropium 3.0-0.5 MG/3 ML Neb Soln NEB PRN ×3 (07:58→19:38)
[2021-01-16] MEDS: predniSONE 20 MG Tab PO SCH (08:32)
[2021-01-16] MEDS: Nicotine 14 MG/24 Hr Patch TRDERM SCH (08:32)
[2021-01-16] MEDS: Enoxaparin 40 MG/0.4 ML Syringe SUBCUT SCH (08:33)
--- NOTE | 2021-01-16 13:01 | PCM.PN ---
- General Info Date of Service: 01/16/21 Admission Dx/Problem (Free Text): Acute respiratory failure due to pneumonia associated with COVID-19. Subjective Update: Patient is a 35-year-old gentleman who was admitted to acute hospitalization yesterday due to COVID-19 pneumonia. Patient continues to feel better. He is currently on 4 L nasal cannula down from 5 L last night. Appetite is still poor, but improving. Functional Status: Reports: Pain Controlled - Review of Systems General: Reports: No Symptoms HEENT: Reports: No Symptoms Pulmonary: Reports: Shortness of Breath, Cough Cardiovascular: Reports: No Symptoms Gastrointestinal: Reports: No Symptoms Musculoskeletal: Reports: No Symptoms - Patient Data Vitals - Most Recent: Last Vital Signs Temp 98.6 F 01/16/21 08:33 Pulse 88 01/16/21 08:33 Resp 18 01/16/21 08:33 BP 121/65 01/16/21 08:33 Pulse Ox 90 L 01/16/21 09:16 Weight - Most Recent: 245 lb 11.2 oz I&O - Last 24 Hours: Intake & Output 01/15/21 01/16/21 01/16/21 22:59 06:59 14:59 Intake Total 2580 1200 Balance 2580 1200 Lab Results Last 24 Hours: Laboratory Results - last 24 hr 01/16/21 01/16/21 Range/Units 06:48 06:48 WBC 11.59 H (4.23-9.07) K/mm3 RBC 4.87 (4.63-6.08) M/mm3 Hgb 13.9 (13.7-17.5) gm/dl Hct 42.6 (40.1-51.0) % MCV 87.5 (79.0-92.2) fl MCH 28.5 (25.7-32.2) pg MCHC 32.6 (32.2-35.5) g/dl RDW Std Deviation 42.8 (35.1-43.9) fL Plt Count 382 H (163-337) K/mm3 MPV 10.9 (9.4-12.3) fl Neut % (Auto) 63.2 (34.0-67.9) % Lymph % (Auto) 20.7 L (21.8-53.1) % Josephine % (Auto) 14.7 H (5.3-12.2) % Eos % (Auto) 0.4 L (0.8-7.0) Baso % (Auto) 0.3 (0.1-1.2) % Neut # (Auto) 7.32 H (1.78-5.38) K/mm3 Lymph # (Auto) 2.40 (1.32-3.57) K/mm3 Josephine # (Auto) 1.70 H (0.30-0.82) K/mm3 Eos # (Auto) 0.05 (0.04-0.54) K/mm3 Baso # (Auto) 0.04 (0.01-0.08) K/mm3 Manual Slide Review Abnormal smear Sodium 143 (136-145) mEq/L Potassium 3.7 (3.5-5.1) mEq/L Chloride 108 H (98-107) mEq/L Carbon Dioxide 26 (21-32) mEq/L Anion Gap 12.7 (5-15) BUN 16 (7-18) mg/dL Creatinine 1.0 (0.7-1.3) mg/dL Est Cr Clr Drug Dosing 106.46 mL/min Estimated GFR (MDRD) > 60 (>60) mL/min BUN/Creatinine Ratio 16.0 (14-18) Glucose 94 (70-99) mg/dL Calcium 8.5 (8.5-10.1) mg/dL Total Bilirubin 0.3 (0.2-1.0) mg/dL AST 108 H (15-37) U/L ALT 173 H (16-63) U/L Alkaline Phosphatase 70 (46-116) U/L C-Reactive Protein 6.4 H* (<1.0) mg/dL Total Protein 7.0 (6.4-8.2) g/dl Albumin 2.9 L (3.4-5.0) g/dl Globulin 4.1 gm/dL Albumin/Globulin Ratio 0.7 L (1-2) Med Orders - Current: Current Medications Acetaminophen (Acetaminophen 325 Mg Tab) 650 mg PO Q4H PRN PRN Reason: Pain (Mild 1-3)/fever Albuterol/Ipratropium (Albuterol/Ipratropium 3.0-0.5 Mg/3 Ml Neb Soln) 3 ml NEB Q4H PRN PRN Reason: Shortness Of Breath/wheezing Last Admin: 01/16/21 07:58 Dose: 3 ml Documented by: Docusate Sodium (Docusate Sodium 100 Mg Cap) 100 mg PO BID PRN PRN Reason: Constipation Enoxaparin Sodium (Enoxaparin 40 Mg/0.4 Ml Syringe) 40 mg SUBCUT DAILY [facility] Last Admin: 01/16/21 08:33 Dose: 40 mg Documented by: Ceftriaxone Sodium 2 gm/ (Sodium Chloride) 100 mls @ 200 mls/hr IV Q24H [facility] Last Admin: 01/15/21 15:45 Dose: 200 mls/hr Documented by: Miscellaneous Information (Remove Nicotine Patch) 1 ea TRDERM DAILY [facility] Last Admin: 01/16/21 09:56 Dose: Not Given Documented by: Nicotine (Nicotine 14 Mg/24 Hr Patch) 14 mg TRDERM DAILY [facility] Last Admin: 01/16/21 08:32 Dose: 14 mg Documented by: Ondansetron HCl (Ondansetron 4 Mg Tab.Dis) 4 mg PO Q4H PRN PRN Reason: nausea, able to take PO Oxycodone HCl (Oxycodone 5 Mg Tab) 5 mg PO Q4H PRN PRN Reason: Pain (moderate 4-6) Prednisone (Prednisone 20 Mg Tab) 40 mg PO WITHBREAKFAST [facility] Last Admin: 01/16/21 08:32 Dose: 40 mg Documented by: Promethazine HCl/Codeine (Codeine/Promethazine 10-6.25 Mg/5 Ml Syrup 5 Ml Ud Cup) 5 ml PO Q4HR PRN PRN Reason: Cough Last Admin: 01/16/21 08:40 Dose: 5 ml Documented by: Sodium Chloride (Sodium Chloride 0.9% 10 Ml Syringe) 10 ml FLUSH ASDIRECTED PRN PRN Reason: Keep Vein Open Last Admin: 01/14/21 15:14 Dose: 10 ml Documented by: Temazepam (Temazepam 15 Mg Cap) 15 mg PO BEDTIME PRN PRN Reason: Sleep Discontinued Medications Morphine Sulfate (Morphine 2 Mg/Ml Syringe) 2 mg IVPUSH Q2H PRN PRN Reason: Pain (severe 7-10) Stop: 01/15/21 17:18 - Exam Quality Assessment: Supplemental Oxygen General: Alert, Oriented HEENT: Pupils Equal, Mucous Membr. Moist/[place] Neck: Supple Lungs: Crackles (Bibasilar). No: Normal Respiratory Effort (Increased respiratory rate and effort) Cardiovascular: Regular Rate, Regular Rhythm GI/Abdominal Exam: Normal Bowel Sounds, Soft, Non-Tender, No Distention Extremities: Normal Inspection, Normal Range of Motion, Non-Tender, No Pedal Edema, Normal Capillary Refill Skin: Warm, Dry, Intact Psy/Mental Status: Alert, Normal Affect, Normal Mood - Patient Data Lab Results Last 24 hrs: Laboratory Results - last 24 hr 01/16/21 01/16/21 Range/Units 06:48 06:48 WBC 11.59 H (4.23-9.07) K/mm3 RBC 4.87 (4.63-6.08) M/mm3 Hgb 13.9 (13.7-17.5) gm/dl Hct 42.6 (40.1-51.0) % MCV 87.5 (79.0-92.2) fl MCH 28.5 (25.7-32.2) pg MCHC 32.6 (32.2-35.5) g/dl RDW Std Deviation 42.8 (35.1-43.9) fL Plt Count 382 H (163-337) K/mm3 MPV 10.9 (9.4-12.3) fl Neut % (Auto) 63.2 (34.0-67.9) % Lymph % (Auto) 20.7 L (21.8-53.1) % Josephine % (Auto) 14.7 H (5.3-12.2) % Eos % (Auto) 0.4 L (0.8-7.0) Baso % (Auto) 0.3 (0.1-1.2) % Neut # (Auto) 7.32 H (1.78-5.38) K/mm3 Lymph # (Auto) 2.40 (1.32-3.57) K/mm3 Josephine # (Auto) 1.70 H (0.30-0.82) K/mm3 Eos # (Auto) 0.05 (0.04-0.54) K/mm3 Baso # (Auto) 0.04 (0.01-0.08) K/mm3 Manual Slide Review Abnormal smear Sodium 143 (136-145) mEq/L Potassium 3.7 (3.5-5.1) mEq/L Chloride 108 H (98-107) mEq/L Carbon Dioxide 26 (21-32) mEq/L Anion Gap 12.7 (5-15) BUN 16 (7-18) mg/dL Creatinine 1.0 (0.7-1.3) mg/dL Est Cr Clr Drug Dosing 106.46 mL/min Estimated GFR (MDRD) > 60 (>60) mL/min BUN/Creatinine Ratio 16.0 (14-18) Glucose 94 (70-99) mg/dL Calcium 8.5 (8.5-10.1) mg/dL Total Bilirubin 0.3 (0.2-1.0) mg/dL AST 108 H (15-37) U/L ALT 173 H (16-63) U/L Alkaline Phosphatase 70 (46-116) U/L C-Reactive Protein 6.4 H* (<1.0) mg/dL Total Protein 7.0 (6.4-8.2) g/dl Albumin 2.9 L (3.4-5.0) g/dl Globulin 4.1 gm/dL Albumin/Globulin Ratio 0.7 L (1-2) Result Diagrams: 01/16/21 06:48 01/16/21 06:48 Sepsis Event Note - Evaluation Sepsis Screening Result: No Definite Risk - Focused Exam Vital Signs: Vital Signs Temp Pulse Resp BP Pulse Ox Pulse Ox 01/16/21 09:16 90 L 01/16/21 08:33 98.6 F 88 18 121/65 89 L 01/16/21 07:58 95 01/16/21 03:30 92 L 01/16/21 03:25 97.9 F 68 24 H 122/77 91 L - Problem List & Annotations (1) Acute respiratory failure SNOMED Code(s): 67023310 Code(s): J96.00 - ACUTE RESPIRATORY FAILURE, UNSP W HYPOXIA OR HYPERCAPNIA Status: Acute Priority: High Current Visit: Yes Qualifiers: Respiratory failure complication: hypoxia Qualified Code(s): J96.01 - Acute respiratory failure with hypoxia (2) Pneumonia due to 2019 novel coronavirus SNOMED Code(s): 092314142511961932 Code(s): U07.1 - COVID-19; J12.82 - PNEUMONIA DUE TO CORONAVIRUS DISEASE 2019 Status: Acute Priority: High Current Visit: Yes (3) Tobacco use SNOMED Code(s): 844762942 Code(s): Z72.0 - TOBACCO USE Status: Chronic Priority: High Current Visit: Yes (4) Transaminitis SNOMED Code(s): 349600279, 415114910 Code(s): R74.01 - ELEVATION OF LEVELS OF LIVER TRANSAMINASE LEVELS Status: Chronic Priority: High Current Visit: Yes - Problem List Review Problem List Initiated/Reviewed/Updated: Yes - Plan Plan:: The patient is a 35-year-old gentleman who has been admitted to hospitalization for treatment of his Covid pneumonia. The patient is outside the window for recommended treatment for remdesivir. I have placed the patient on ceftriaxone 2 g IV daily to cover any superimposed bacterial infection. The patient has also been started on prednisone 40 mg p.o. daily. The patient will have a regular diet as tolerated. The patient will have oxygen titrated to keep his saturations around 92%. The patient is also anticoagulated for DVT prophylaxis with the use of Lovenox 40 mg subcu daily. The patient has been encouraged to ambulate. He is also to use incentive spirometer. The patient also has elevations of his ALT/AST and have ordered repeat laboratory studies in the morning to monitor those for now. I have also afforded the patient a nicotine patch 14 mg daily if needed. To help with the patient's cough he has Phenergan with codeine. The patient should be appropriate for discharge when his oxygen saturations have improved and his symptoms have improved as well. 01/15/2021 The patient is a 35-year-old gentleman who had been admitted to acute hospitalization for treatment of Covid associated pneumonia. The patient was outside the window of treatment for his remdesivir however, he has ceftriaxone 2 g IV daily for treatment of possible bacterial superimposed infection. The patient is also on prednisone 40 mg p.o. daily to continue. His oxygen will be titrated to keep his saturations around 92%. The patient has been encouraged to ambulate and use incentive spirometer. I have also educated the patient on the importance of the incentive spirometer and Acapella. The patient's ALT and AST have improved somewhat and repeat laboratory studies have been ordered. His cough is being suppressed with the use of Phenergan and codeine. The patient's DVT prophylaxis will continue with the use of Lovenox 40 mg subcutaneously daily. He is also to have a regular diet as tolerated. The patient should be appropriate for discharge once his oxygen demands have improved and his symptoms have improved as well. 01/16/2021 35-year-old male with COVID-19 pneumonia. He is currently on ceftriaxone and prednisone 40 mg daily. He is outside the window for remdesivir. He has had an improvement in his oxygen saturations and he is down to 4 L via nasal cannula. He continues to use his incentive spirometer, although he does state that it is hard for him to do. AST and ALT continue to decrease but are both over 100. He states his appetite is improving. Plan COVID-19 pneumonia with hypoxemia * Continue FiO2 to keep SPO2 greater than 87%. * Continue ceftriaxone 2 g daily for no more than 5 days * Continue prednisone 40 mg daily * Continue incentive spirometer and Acapella Transaminitis * Likely multifactorial to include COVID-19 and obesity. * AST and ALT are both improving without specific treatment. * Continue to follow. VTE prophylaxis with Lovenox CODE STATUS: Full code
[2021-01-16] MEDS: Benzonatate 100 MG Cap PO PRN (15:32)
[2021-01-16] MEDS: cefTRIAXone 2 GM in Sodium Chloride 0.9% 100 ML IV SCH (15:32)
[2021-01-17] MEDS: Benzonatate 100 MG Cap PO PRN (05:50)
[2021-01-17] MEDS: predniSONE 20 MG Tab PO SCH (06:20)
[2021-01-17] MEDS: Enoxaparin 40 MG/0.4 ML Syringe SUBCUT SCH (08:45)
[2021-01-17] MEDS: Nicotine 14 MG/24 Hr Patch TRDERM SCH (08:47)
--- NOTE | 2021-01-17 09:48 | PCM.DCSUM1 ---
<Enma Rouse - Last Filed: 01/17/21 10:16> Discharge Summary - Hospital Course HPI Initial Comments: Initial Comments - Free Text/Narative: The patient is a 35-year-old gentleman who had presented to the emergency department on January 14, 2021 with a complaint of shortness of breath. The patient had been diagnosed with COVID 19 on January 09, 2021 by testing. The patient says that his symptoms started approximately 2 weeks ago. He has been trying to treat at home without success. The patient also says that he has paroxysmal coughing and not able to take a deep breath. The patient had completed 10 days of isolation at home. The patient says that he had a headache initially but this has resolved. He is denied any nausea or vomiting. The patient also reports that he had some fever. Decreased appetite. The patient has no other medical history and is not taking any medications. The patient has been vaping tobacco. Onset of Symptoms: Reports: Gradual Duration of Symptoms: Reports: Week(s):, Getting Worse Location: Reports: Chest, Generalized Quality: Reports: Dull Improves with: Reports: Rest Worsens with: Reports: Breathing Context: Reports: Sick Contact Associated Symptoms: Reports: Cough, Headaches Chest Pain Score (Numeric/FACES): 5 Assessment/Plan Comment:: The patient is a 35-year-old gentleman who has been admitted to hospitalization for treatment of his Covid pneumonia. The patient is outside the window for recommended treatment for remdesivir. I have placed the patient on ceftriaxone 2 g IV daily to cover any superimposed bacterial infection. The patient has also been started on prednisone 40 mg p.o. daily. The patient will have a regular diet as tolerated. The patient will have oxygen titrated to keep his saturations around 92%. The patient is also anticoagulated for DVT prophylaxis with the use of Lovenox 40 mg subcu daily. The patient has been encouraged to ambulate. He is also to use incentive spirometer. The patient also has elevations of his ALT/AST and have ordered repeat laboratory studies in the morning to monitor those for now. I have also afforded the patient a nicotine patch 14 mg daily if needed. To help with the patient's cough he has Phenergan with codeine. The patient should be appropriate for discharge when his oxygen saturations have improved and his symptoms have improved as well. - Mortality Measure Prognosis:: Good Diagnosis: Stroke: No - Discharge Data Discharge Date: 01/17/21 Discharge Disposition: Home, Self-Care 01 Condition: Good - Referral to Home Health Primary Care Physician: PCP None - Patient Instructions Diet: Usual Diet as Tolerated Activity: As Tolerated Driving: Do Not Drive Showering/Bathing: May Shower Notify Provider of: Fever (Worsening shortness of breath, oxygen saturations of less than 88%. ) Other/Special Instructions: Follow up with PCP in 1 week. - Discharge Plan *PRESCRIPTION DRUG MONITORING PROGRAM REVIEWED*: No *COPY OF PRESCRIPTION DRUG MONITORING REPORT IN PATIENT DEONTE: No Prescriptions/Med Rec: Nicotine [Habitrol] 14 mg TRDERM DAILY #30 patch predniSONE 40 mg PO WITHBREAKFAST #10 tablet Benzonatate [Tessalon Perles] 200 mg PO TID PRN #30 cap PRN Reason: Cough Tobacco Cessation Medication: Prescription Given Home Medications: Home Meds Benzonatate [Tessalon Perles] 200 mg PO TID PRN #30 cap 01/17/21 [Rx] Nicotine [Habitrol] 14 mg TRDERM DAILY #30 patch 01/17/21 [Rx] predniSONE 40 mg PO WITHBREAKFAST #10 tablet 01/17/21 [Rx] Oxygen Therapy Mode: Nasal Cannula Oxygen Flow Rate (L/min): 3 Maintain SpO2% greater than: 89 Patient Handouts: COVID-19 Frequently Asked Questions, COVID-19, Electronic Cigarette Information, 10 Things You Can Do to Manage Your COVID-19 Symptoms at Home - [facility] (09/30/2020), Home Oxygen Use, Adult, Tobacco Use Disorder, Steps to Quit Smoking, Sepsis, Self Care, Adult Forms: ED Department Discharge Referrals: Jeanna Mosley NP [Ordering Only Provider] - 01/24/21 10:30 am (This is at [facility]. please arrive 15 minutes prior to the appointment to register, ) - Discharge Summary/Plan Comment DC Time >30 min.: Yes Total # of Minutes for Discharge Time: 35 minutes Discharge Summary/Plan Comment: Plan:: The patient is a 35-year-old gentleman who has been admitted to hospitalization for treatment of his Covid pneumonia. The patient is outside the window for recommended treatment for remdesivir. I have placed the patient on ceftriaxone 2 g IV daily to cover any superimposed bacterial infection. The patient has also been started on prednisone 40 mg p.o. daily. The patient will have a regular diet as tolerated. The patient will have oxygen titrated to keep his saturations around 92%. The patient is also anticoagulated for DVT prophylaxis with the use of Lovenox 40 mg subcu daily. The patient has been encouraged to ambulate. He is also to use incentive spirometer. The patient also has elevations of his ALT/AST and have ordered repeat laboratory studies in the morning to monitor those for now. I have also afforded the patient a nicotine patch 14 mg daily if needed. To help with the patient's cough he has Phenergan with codeine. The patient should be appropriate for discharge when his oxygen saturations have improved and his symptoms have improved as well. 01/15/2021 The patient is a 35-year-old gentleman who had been admitted to acute hospitalization for treatment of Covid associated pneumonia. The patient was outside the window of treatment for his remdesivir however, he has ceftriaxone 2 g IV daily for treatment of possible bacterial superimposed infection. The patient is also on prednisone 40 mg p.o. daily to continue. His oxygen will be titrated to keep his saturations around 92%. The patient has been encouraged to ambulate and use incentive spirometer. I have also educated the patient on the importance of the incentive spirometer and Acapella. The patient's ALT and AST have improved somewhat and repeat laboratory studies have been ordered. His cough is being suppressed with the use of Phenergan and codeine. The patient's DVT prophylaxis will continue with the use of Lovenox 40 mg subcutaneously daily. He is also to have a regular diet as tolerated. The patient should be appropriate for discharge once his oxygen demands have improved and his symptoms have improved as well. 01/16/2021 35-year-old male with COVID-19 pneumonia. He is currently on ceftriaxone and prednisone 40 mg daily. He is outside the window for remdesivir. He has had an improvement in his oxygen saturations and he is down to 4 L via nasal cannula. He continues to use his incentive spirometer, although he does state that it is hard for him to do. AST and ALT continue to decrease but are both over 100. He states his appetite is improving. Plan COVID-19 pneumonia with hypoxemia * Continue FiO2 to keep SPO2 greater than 87%. * Continue ceftriaxone 2 g daily for no more than 5 days * Continue prednisone 40 mg daily * Continue incentive spirometer and Acapella Transaminitis * Likely multifactorial to include COVID-19 and obesity. * AST and ALT are both improving without specific treatment. * Continue to follow. VTE prophylaxis with Lovenox CODE STATUS: Full code 01/17/2021 Hemant is a 35yo male who was admitted on 01/14/2021 for treatment of COVID-19 pneumonia. He is outside the window for remdesivir. Oxygen saturations have improved and is currently on 3L via nasal cannula at rest and 4L with ambulation. He continues to use incentive spirometer. AST and ALT are still elevated above 100. He states he is feeling much better and would like to go home. Patient does not have health insurance. Discharge home today. Plan: COVID-19 pneumonia w/ hypoxemia * Continue supplemental oxygen at home to keep SpO2 above 89% * Will require 3L via nasal cannula at rest and 4L via nasal cannula with ambulation * Discontinue ceftriaxone, WBC elevation likely a consequence of corticosteroid treatment * Continue prednisone 40mg daily for 5 days * Continue to abstain from smoking cigarettes, prescribed nicotine patches * Do not return to work until cleared by PCP Transaminitis * Likely multifactorial to include COVID-19 and obesity * AST and ALT are improving without specific treatment * Follow with PCP - General Info Date of Service: 01/17/21 Admission Dx/Problem (Free Text: Acute respiratory failure due to pneumonia associated with COVID-19. Subjective Update: Hemant is a 35yo male admitted on 01/14/2021 for COVID-19 pneumonia. He requires 3L O2 via nasal cannula at rest and 4L with ambulation. Appetite is much improved. He is feeling better and is ready to go home. Functional Status: Reports: Pain Controlled, Tolerating Diet, Ambulating, Urinating, Incentive Spirometry - Review of Systems General: Reports: No Symptoms HEENT: Reports: No Symptoms, Glasses Pulmonary: Reports: Shortness of Breath, Cough Cardiovascular: Reports: No Symptoms Gastrointestinal: Reports: No Symptoms Genitourinary: Reports: No Symptoms Musculoskeletal: Reports: No Symptoms Skin: Reports: No Symptoms Neurological: Reports: No Symptoms Psychiatric: Reports: No Symptoms - Patient Data Vitals - Most Recent: Last Vital Signs Temp 98.4 F 01/17/21 07:43 Pulse 77 01/17/21 07:43 Resp 24 H 01/17/21 07:43 BP 142/81 H 01/17/21 07:43 Pulse Ox 95 01/17/21 07:43 Weight - Most Recent: 246 lb 8 oz I&O - Last 24 hours: Intake & Output 01/16/21 01/17/21 01/17/21 22:59 06:59 14:59 Intake Total 1500 800 Balance 1500 800 Lab Results - Last 24 hrs: Laboratory Results - last 24 hr 01/17/21 01/17/21 01/17/21 Range/Units 05:00 05:00 05:00 WBC 10.66 H (4.23-9.07) K/mm3 RBC 4.68 (4.63-6.08) M/mm3 Hgb 13.3 L (13.7-17.5) gm/dl Hct 41.3 (40.1-51.0) % MCV 88.2 (79.0-92.2) fl MCH 28.4 (25.7-32.2) pg MCHC 32.2 (32.2-35.5) g/dl RDW Std Deviation 42.1 (35.1-43.9) fL Plt Count 466 H D (163-337) K/mm3 MPV 10.9 (9.4-12.3) fl Neut % (Auto) 61.4 (34.0-67.9) % Lymph % (Auto) 22.5 (21.8-53.1) % [place] % (Auto) 13.8 H (5.3-12.2) % Eos % (Auto) 0.5 L (0.8-7.0) Baso % (Auto) 0.3 (0.1-1.2) % Neut # (Auto) 6.55 H (1.78-5.38) K/mm3 Lymph # (Auto) 2.40 (1.32-3.57) K/mm3 [place] # (Auto) 1.47 H (0.30-0.82) K/mm3 Eos # (Auto) 0.05 (0.04-0.54) K/mm3 Baso # (Auto) 0.03 (0.01-0.08) K/mm3 Manual Slide Review Normal smear D-Dimer, Quantitative 0.63 H (0.19-0.50) mg/L Sodium 145 (136-145) mEq/L Potassium 3.7 (3.5-5.1) mEq/L Chloride 109 H (98-107) mEq/L Carbon Dioxide 25 (21-32) mEq/L Anion Gap 14.7 (5-15) BUN 15 (7-18) mg/dL Creatinine 1.0 (0.7-1.3) mg/dL Est Cr Clr Drug Dosing 106.46 mL/min Estimated GFR (MDRD) > 60 (>60) mL/min BUN/Creatinine Ratio 15.0 (14-18) Glucose 93 (70-99) mg/dL Calcium 8.5 (8.5-10.1) mg/dL Phosphorus 4.2 (2.6-4.7) mg/dL Magnesium 2.0 (1.8-2.4) mg/dL Total Bilirubin 0.3 (0.2-1.0) mg/dL AST 117 H (15-37) U/L ALT 216 H (16-63) U/L Alkaline Phosphatase 74 (46-116) U/L C-Reactive Protein 3.3 H* (<1.0) mg/dL Total Protein 6.8 (6.4-8.2) g/dl Albumin 2.8 L (3.4-5.0) g/dl Globulin 4.0 gm/dL Albumin/Globulin Ratio 0.7 L (1-2) Med Orders - Current: Current Medications Acetaminophen (Acetaminophen 325 Mg Tab) 650 mg PO Q4H PRN PRN Reason: Pain (Mild 1-3)/fever Albuterol/Ipratropium (Albuterol/Ipratropium 3.0-0.5 Mg/3 Ml Neb Soln) 3 ml NEB Q4H PRN PRN Reason: Shortness Of Breath/wheezing Last Admin: 01/16/21 19:38 Dose: 3 ml Documented by: Benzonatate (Benzonatate 100 Mg Cap) 200 mg PO TID PRN PRN Reason: Cough Last Admin: 01/17/21 05:50 Dose: 200 mg Documented by: Docusate Sodium (Docusate Sodium 100 Mg Cap) 100 mg PO BID PRN PRN Reason: Constipation Enoxaparin Sodium (Enoxaparin 40 Mg/0.4 Ml Syringe) 40 mg SUBCUT DAILY [facility] Last Admin: 01/17/21 08:45 Dose: 40 mg Documented by: Ceftriaxone Sodium 2 gm/ (Sodium Chloride) 100 mls @ 200 mls/hr IV Q24H [facility] Last Admin: 01/16/21 15:32 Dose: 200 mls/hr Documented by: Miscellaneous Information (Remove Nicotine Patch) 1 ea TRDERM DAILY [facility] Last Admin: 01/17/21 08:47 Dose: Not Given Documented by: Nicotine (Nicotine 14 Mg/24 Hr Patch) 14 mg TRDERM DAILY [facility] Last Admin: 01/17/21 08:47 Dose: Not Given Documented by: Ondansetron HCl (Ondansetron 4 Mg Tab.Dis) 4 mg PO Q4H PRN PRN Reason: nausea, able to take PO Oxycodone HCl (Oxycodone 5 Mg Tab) 5 mg PO Q4H PRN PRN Reason: Pain (moderate 4-6) Prednisone (Prednisone 20 Mg Tab) 40 mg PO WITHBREAKFAST [facility] Last Admin: 01/17/21 06:20 Dose: 40 mg Documented by: Promethazine HCl/Codeine (Codeine/Promethazine 10-6.25 Mg/5 Ml Syrup 5 Ml Ud Cup) 5 ml PO Q4HR PRN PRN Reason: Cough Last Admin: 01/16/21 20:13 Dose: 5 ml Documented by: Sodium Chloride (Sodium Chloride 0.9% 10 Ml Syringe) 10 ml FLUSH ASDIRECTED PRN PRN Reason: Keep Vein Open Last Admin: 01/14/21 15:14 Dose: 10 ml Documented by: Temazepam (Temazepam 15 Mg Cap) 15 mg PO BEDTIME PRN PRN Reason: Sleep Discontinued Medications Morphine Sulfate (Morphine 2 Mg/Ml Syringe) 2 mg IVPUSH Q2H PRN PRN Reason: Pain (severe 7-10) Stop: 01/15/21 17:18 - Exam Quality Assessment: Reports: Supplemental Oxygen General: Reports: Alert, Oriented, Cooperative, No Acute Distress HEENT: Reports: Pupils Equal, Pupils Reactive, EOMI, Mucous Membr. Moist/[place] Neck: Reports: Supple Lungs: Reports: Crackles (bilaterally in all lung [place]) Cardiovascular: Reports: Regular Rate, Regular Rhythm GI/Abdominal Exam: Normal Bowel Sounds, Soft, Non-Tender, No Organomegaly, No Distention, No Mass Back Exam: Reports: Normal Inspection, Full Range of Motion Extremities: Normal Inspection, Normal Range of Motion, Non-Tender, No Pedal Edema, Normal Capillary Refill Skin: Reports: Warm, Dry, Intact Neurological: Reports: No New Focal Deficit Psy/Mental Status: Reports: Alert, Normal Affect, Normal Mood <Ahmet Lora III - Last Filed: 01/17/21 10:17> Discharge Summary - Referral to Home Health Primary Care Physician: PCP None - Discharge Diagnosis/Problem(s) (1) Acute respiratory failure SNOMED Code(s): 97428473 ICD Code: J96.00 - ACUTE RESPIRATORY FAILURE, UNSP W HYPOXIA OR HYPERCAPNIA Status: Acute Priority: High Current Visit: Yes Qualifiers: Respiratory failure complication: hypoxia Qualified Code(s): J96.01 - Acute respiratory failure with hypoxia (2) Pneumonia due to 2019 novel coronavirus SNOMED Code(s): 417480671971572128 ICD Code: U07.1 - COVID-19; J12.82 - PNEUMONIA DUE TO CORONAVIRUS DISEASE 2019 Status: Acute Priority: High Current Visit: Yes (3) Tobacco use SNOMED Code(s): 456413642 ICD Code: Z72.0 - TOBACCO USE Status: Chronic Priority: High Current Visit: Yes (4) Transaminitis SNOMED Code(s): 362083889, 026995865 ICD Code: R74.01 - ELEVATION OF LEVELS OF LIVER TRANSAMINASE LEVELS Status: Chronic Priority: High Current Visit: Yes - Discharge Summary/Plan Comment Discharge Summary/Plan Comment: Patient was seen, examined, and evaluated personally and I agree with the above findings, assessment, and plan. - Patient Data Vitals - Most Recent: Last Vital Signs Temp 98.4 F 01/17/21 07:43 Pulse 77 01/17/21 07:43 Resp 24 H 01/17/21 07:43 BP 142/81 H 01/17/21 07:43 Pulse Ox 95 01/17/21 07:43 I&O - Last 24 hours: Intake & Output 01/16/21 01/17/21 01/17/21 22:59 06:59 14:59 Intake Total 1500 800 Balance 1500 800 Lab Results - Last 24 hrs: Laboratory Results - last 24 hr 01/17/21 01/17/21 01/17/21 Range/Units 05:00 05:00 05:00 WBC 10.66 H (4.23-9.07) K/mm3 RBC 4.68 (4.63-6.08) M/mm3 Hgb 13.3 L (13.7-17.5) gm/dl Hct 41.3 (40.1-51.0) % MCV 88.2 (79.0-92.2) fl MCH 28.4 (25.7-32.2) pg MCHC 32.2 (32.2-35.5) g/dl RDW Std Deviation 42.1 (35.1-43.9) fL Plt Count 466 H D (163-337) K/mm3 MPV 10.9 (9.4-12.3) fl Neut % (Auto) 61.4 (34.0-67.9) % Lymph % (Auto) 22.5 (21.8-53.1) % [place] % (Auto) 13.8 H (5.3-12.2) % Eos % (Auto) 0.5 L (0.8-7.0) Baso % (Auto) 0.3 (0.1-1.2) % Neut # (Auto) 6.55 H (1.78-5.38) K/mm3 Lymph # (Auto) 2.40 (1.32-3.57) K/mm3 [place] # (Auto) 1.47 H (0.30-0.82) K/mm3 Eos # (Auto) 0.05 (0.04-0.54) K/mm3 Baso # (Auto) 0.03 (0.01-0.08) K/mm3 Manual Slide Review Normal smear D-Dimer, Quantitative 0.63 H (0.19-0.50) mg/L Sodium 145 (136-145) mEq/L Potassium 3.7 (3.5-5.1) mEq/L Chloride 109 H (98-107) mEq/L Carbon Dioxide 25 (21-32) mEq/L Anion Gap 14.7 (5-15) BUN 15 (7-18) mg/dL Creatinine 1.0 (0.7-1.3) mg/dL Est Cr Clr Drug Dosing 106.46 mL/min Estimated GFR (MDRD) > 60 (>60) mL/min BUN/Creatinine Ratio 15.0 (14-18) Glucose 93 (70-99) mg/dL Calcium 8.5 (8.5-10.1) mg/dL Phosphorus 4.2 (2.6-4.7) mg/dL Magnesium 2.0 (1.8-2.4) mg/dL Total Bilirubin 0.3 (0.2-1.0) mg/dL AST 117 H (15-37) U/L ALT 216 H (16-63) U/L Alkaline Phosphatase 74 (46-116) U/L C-Reactive Protein 3.3 H* (<1.0) mg/dL Total Protein 6.8 (6.4-8.2) g/dl Albumin 2.8 L (3.4-5.0) g/dl Globulin 4.0 gm/dL Albumin/Globulin Ratio 0.7 L (1-2) Med Orders - Current: Current Medications Acetaminophen (Acetaminophen 325 Mg Tab) 650 mg PO Q4H PRN PRN Reason: Pain (Mild 1-3)/fever Albuterol/Ipratropium (Albuterol/Ipratropium 3.0-0.5 Mg/3 Ml Neb Soln) 3 ml NEB Q4H PRN PRN Reason: Shortness Of Breath/wheezing Last Admin: 01/16/21 19:38 Dose: 3 ml Documented by: Benzonatate (Benzonatate 100 Mg Cap) 200 mg PO TID PRN PRN Reason: Cough Last Admin: 01/17/21 05:50 Dose: 200 mg Documented by: Docusate Sodium (Docusate Sodium 100 Mg Cap) 100 mg PO BID PRN PRN Reason: Constipation Enoxaparin Sodium (Enoxaparin 40 Mg/0.4 Ml Syringe) 40 mg SUBCUT DAILY [facility] Last Admin: 01/17/21 08:45 Dose: 40 mg Documented by: Ceftriaxone Sodium 2 gm/ (Sodium Chloride) 100 mls @ 200 mls/hr IV Q24H [facility] Last Admin: 01/16/21 15:32 Dose: 200 mls/hr Documented by: Miscellaneous Information (Remove Nicotine Patch) 1 ea TRDERM DAILY [facility] Last Admin: 01/17/21 08:47 Dose: Not Given Documented by: Nicotine (Nicotine 14 Mg/24 Hr Patch) 14 mg TRDERM DAILY [facility] Last Admin: 01/17/21 08:47 Dose: Not Given Documented by: Ondansetron HCl (Ondansetron 4 Mg Tab.Dis) 4 mg PO Q4H PRN PRN Reason: nausea, able to take PO Oxycodone HCl (Oxycodone 5 Mg Tab) 5 mg PO Q4H PRN PRN Reason: Pain (moderate 4-6) Prednisone (Prednisone 20 Mg Tab) 40 mg PO WITHBREAKFAST [facility] Last Admin: 01/17/21 06:20 Dose: 40 mg Documented by: Promethazine HCl/Codeine (Codeine/Promethazine 10-6.25 Mg/5 Ml Syrup 5 Ml Ud Cup) 5 ml PO Q4HR PRN PRN Reason: Cough Last Admin: 01/16/21 20:13 Dose: 5 ml Documented by: Sodium Chloride (Sodium Chloride 0.9% 10 Ml Syringe) 10 ml FLUSH ASDIRECTED PRN PRN Reason: Keep Vein Open Last Admin: 01/14/21 15:14 Dose: 10 ml Documented by: Temazepam (Temazepam 15 Mg Cap) 15 mg PO BEDTIME PRN PRN Reason: Sleep Discontinued Medications Morphine Sulfate (Morphine 2 Mg/Ml Syringe) 2 mg IVPUSH Q2H PRN PRN Reason: Pain (severe 7-10) Stop: 01/15/21 17:18
== END 2021-01-17 11:34 | disposition home or self-care (01) | DRG 177 ==
LOC: JD.ED 13:55 → JD.MS 17:18
PROVIDERS: ADMIT Internal Medicine; ATTEND Internal Medicine
DX: U07.1 COVID-19 (principal); J12.82 Pneumonia due to coronavirus disease 2019; J96.01 Acute respiratory failure with hypoxia; Z72.0 Tobacco use; R74.01 Elevation of levels of liver transaminase levels
CPT/HCPCS: 36415; 71045; 71045-26; 80053; 83735; 84100; 85025; 85379; 86140; 94640; 94762; 99221; 99232; 99239; 99285-25; A9270-GY; J0696; J1650; J7512; J7620-GY; U0002